=== PATIENT | female | born 1945 | race African-American/Black ===

== ENCOUNTER 2018-04-21 12:55 | Emergency (ER) | payer OTHER ==
[2018-04-21] MEDS ORDERED: NORMAL SALINE 1000 ML 1,000 ML IV ONE (13:28)
[2018-04-21 13:40] LABS: PROTHROMBIN TIME 12.6 SEC (11.4-15.4)
[2018-04-21 13:41] LABS: ABSOLUTE EOSINOPHILS # (AUTO) 0.1 10^3/uL (0.0-0.6); ABSOLUTE LYMPHOCYTES (AUTO) 1.6 10^3/uL (0.5-4.7); ABSOLUTE MONOCYTES (AUTO) 0.5 10^3/uL (0.1-1.4); ABSOLUTE NEUT (AUTO) 3.3 10^3/uL (1.7-8.2); BASOPHILS % (AUTO) 0.5 % (0-2); EOSINOPHILS % (AUTO) 1.3 % (0-6); HEMATOCRIT 41.5 % (36.0-47.0); HEMOGLOBIN 13.8 g/dL (12.0-15.5); LYMPHOCYTES % (AUTO) 29.2 % (13-45); MEAN CORPUSCULAR HEMOGLOBIN 29.6 pg (27.0-33.4); MEAN CORPUSCULAR HGB CONC 33.3 g/dL (32.0-36.0); MEAN CORPUSCULAR VOLUME 89 fl (80-97); MONOCYTES % (AUTO) 8.9 % (3-13); PLATELET COUNT 308 10^3/uL (150-450); RED BLOOD COUNT 4.66 10^6/uL (3.72-5.28); RED CELL DISTRIBUTION WIDTH 14.1 % (11.5-14.0); SEGMENTED NEUTROPHILS % (AUTO) 60.1 % (42-78); TOTAL CELLS COUNTED % (AUTO) 100 %; WHITE BLOOD COUNT 5.4 10^3/uL (4.0-10.5)
[2018-04-21 13:45] LABS: ALANINE AMINOTRANSFERASE 52 U/L (9-52); ALKALINE PHOSPHATASE 55 U/L (38-126); ANION GAP 11 (5-19); ASPARTATE AMINO TRANSFERASE 49 U/L (14-36); BILIRUBIN,DIRECT 0.3 mg/dL (0.0-0.4); BILIRUBIN,TOTAL 0.6 mg/dL (0.2-1.3); BLOOD UREA NITROGEN 15 mg/dL (7-20); CALCIUM 9.8 mg/dL (8.4-10.2); CARBON DIOXIDE 24 mmol/L (22-30); CHLORIDE 106 mmol/L (98-107); GLUCOSE 148 mg/dL (75-110); POTASSIUM 3.8 mmol/L (3.6-5.0); SODIUM 141.3 mmol/L (137-145); TOTAL PROTEIN 7.1 g/dL (6.3-8.2)
[2018-04-21 14:16] LABS: VENOUS BLOOD BASE EXCESS 1.6 mmol/L; VENOUS BLOOD HCO3 26.3 mmol/L (20-32); VENOUS BLOOD PCO2 41.6 mmHg (35-63); VENOUS BLOOD PH 7.42 (7.30-7.42)
--- NOTE | 2018-04-21 14:22 | RADIOLOGY REPORT (SQ) ---
EXAM DESCRIPTION: CHEST SINGLE VIEW COMPLETED DATE/TIME: 04/21/2018 2:03 pm REASON FOR STUDY: tachy COMPARISON: 06/02/2010 EXAM PARAMETERS: NUMBER OF VIEWS: One view. TECHNIQUE: Single frontal radiographic view of the chest acquired. RADIATION DOSE: NA LIMITATIONS: None. FINDINGS: LUNGS AND PLEURA: No opacities, masses or pneumothorax. No pleural effusion. MEDIASTINUM AND HILAR STRUCTURES: No masses. Contour normal. HEART AND VASCULAR STRUCTURES: Heart normal in size for technique. Normal vasculature. BONES: No acute findings. HARDWARE: None in the chest. OTHER: No other significant finding. IMPRESSION: NO ACUTE RADIOGRAPHIC FINDING IN THE CHEST. TECHNICAL DOCUMENTATION: JOB ID: [id number] [employer]- All Rights Reserved Reading location - IP/workstation name: [email or web address]
[2018-04-21 15:01] LABS: APPEARANCE,URINE CLEAR; BILIRUBIN,URINE NEGATIVE (NEGATIVE); COLOR,URINE STRAW; GLUCOSE, URINE NEGATIVE (NEGATIVE); KETONES,URINE NEGATIVE (NEGATIVE); LEUKOCYTE ESTERASE,URINE NEGATIVE (NEGATIVE); NITRITE,URINE NEGATIVE (NEGATIVE); PROTEIN,URINE NEGATIVE (NEGATIVE); URINE SPECIFIC GRAVITY 1.004; UROBILINOGEN,URINE NEGATIVE mg/dL (<2.0)
[2018-04-21 15:16] LABS: URINE AMPHETAMINES SCREEN NEGATIVE; URINE BARBITURATES SCREEN NEGATIVE; URINE BENZODIAZEPINES SCREEN NEGATIVE; URINE COCAINE SCREEN NEGATIVE; URINE MARIJUANA (THC) SCREEN NEGATIVE; URINE METHADONE SCREEN NEGATIVE; URINE PHENCYCLIDINE SCREEN NEGATIVE
[2018-04-21] MEDS ORDERED: VERAPAMIL HCL 120 MG TABLET PO ONE (16:25)
--- NOTE | 2018-04-21 16:33 | ER Document Report ---
ED General - General Chief Complaint: Shortness Of Breath Stated Complaint: SHORTNESS OF BREATH Time Seen by Provider: 04/21/18 13:09 Mode of Arrival: Ambulatory Information source: Patient, Emergency Med Personnel, Outside Facility Records Notes: Patient is a 72-year-old female brought in by EMS who was called by home health to come pick the patient up because she was tachycardic. EMS dropped the patient off at the ER and inform the nursing staff that she was tachycardic. No other history was given to us and patient is borderline dementia. She is functional and lives alone with her cat. Patient has no idea why she is here she does not know that she is tachycardic and she states she is not short of breath. Medications listed on the computer by nursing showed her to take verapamil 120 daily and hydrochlorothiazide 25 daily and simvastatin at night. No other meds were reported. Again patient has no complaints on her own. Although her monitor reading shows her to be tach and out at 130 in stay and at that rate. She denied any chest pain any shortness of breath no nausea no vomiting and no diarrhea. TRAVEL OUTSIDE OF THE [place] IN LAST 30 DAYS: No - HPI Onset: Other - Unknown Onset/Duration: Persistent Quality of pain: No pain Severity: None Pain Level: 0 Associated symptoms: None Exacerbated by: Denies Relieved by: Denies Similar symptoms previously: Yes Recently seen / treated by doctor: No - Related Data Allergies/Adverse Reactions: acetaminophen [From Percocet] Adverse Reaction (Intermediate, Verified 03/16/11 15:37) hallucinates oxycodone HCl [From Percocet] Adverse Reaction (Intermediate, Verified 03/16/11 15:37) hallucinates phenytoin sodium [From Dilantin] Adverse Reaction (Intermediate, Verified 15:36) skin peels phenytoin sodium extended [From Dilantin] Adverse Reaction (Intermediate, Verified 03/16/11 15:36) skin peels Past Medical History - General Information source: Patient, Emergency Med Personnel, Outside Facility Records Cannot obtain history due to: Dementia - Social History Smoking Status: Never Smoker Cigarette use (# per day): No Chew tobacco use (# tins/day): No Smoking Education Provided: No Frequency of alcohol use: None Drug Abuse: None Lives with: Alone Family History: Reviewed & Not Pertinent Patient has suicidal ideation: No Patient has homicidal ideation: No - Past Medical History Cardiac Medical History: Reports: Hx Hypertension Denies: Hx Coronary Artery Disease, Hx Heart Attack Pulmonary Medical History: Denies: Hx Asthma, Hx Bronchitis, Hx COPD, Hx Pneumonia Neurological Medical History: Denies: Hx Cerebrovascular Accident, Hx Seizures Endocrine Medical History: Reports: Hx Diabetes Mellitus Type 2 Renal/ Medical History: Denies: Hx Peritoneal Dialysis Musculoskeletal Medical History: Denies Hx Arthritis Past Surgical History: Denies: Hx Hysterectomy, Hx Pacemaker - Immunizations Hx Diphtheria, Pertussis, Tetanus Vaccination: No Review of Systems - Review of Systems Constitutional: No symptoms reported EENT: No symptoms reported Cardiovascular: No symptoms reported, Other - Tachycardia only complaint Respiratory: No symptoms reported Gastrointestinal: No symptoms reported Genitourinary: No symptoms reported Female Genitourinary: No symptoms reported Musculoskeletal: No symptoms reported Skin: No symptoms reported Hematologic/Lymphatic: No symptoms reported Neurological/Psychological: No symptoms reported -: Yes All other systems reviewed and negative Physical Exam - Vital signs Vitals: Pulse Resp BP Pulse Ox 129 H 15 137/93 H 100 04/21/18 12:56 04/21/18 12:56 04/21/18 12:56 04/21/18 12:56 Interpretation: Tachycardic - Notes Notes: This is a 72-year-old female who appears younger than her stated age. She attempts to be very articulate and appears somewhat anxious. Patient cannot tell me what year it is she knows she lives in [facility] that she has a cat at home that she takes care of and does not know who the president is. She does not know why she is here. She is very pleasant. It is evident that keeping her out of her surroundings makes her more up tight - General General appearance: Anxious In distress: None - Respiratory Respiratory status: No respiratory distress Chest status: Nontender. No: Pain on movement, Pain with cough, Pain with deep breathing Breath sounds: Normal. No: Rales, Rhonchi, Stridor, Wheezing Chest palpation: Normal. No: [place] frothy sputum, Subcutaneous emphysema, Sucking chest wound, Wounds - Cardiovascular Rhythm: Tachycardia Heart sounds: Normal auscultation Murmur: No - Abdominal Inspection: Normal Distension: No distension Bowel sounds: Normal Tenderness: Nontender Organomegaly: No organomegaly - Extremities General upper extremity: Normal inspection, Nontender, Normal ROM, Normal strength General lower extremity: Tender, Edema Calf: Tender, Abrasion, Other - Examination patient's lower extremities shows that the right leg appears slightly bigger than the left but no sign of a infection no sign of DVT negative Homans good cap refill in the nailbeds of the toes. She also has good dorsalis pedal pulse and posterior tibial pulses bilaterally. She also displays good popliteal pulses. No change in skin temperature from 1 like to the other. There is a small abrasion on the right anterior cesar. Ankle: Normal, Nontender Foot: Normal, Nontender - Neurological Cognition: Confused, Short term memory loss Orientation: Disoriented to place, Disoriented to time, Disoriented to events [place] Coma Scale Eye Opening: Spontaneous [place] Coma Scale Verbal: Confused [place] Coma Scale Motor: Obeys Commands [place] Coma Scale Total: 14 Speech: Normal Motor strength normal: LUE, RUE, LLE, RLE Additional motor exam normals: Equal operations support analyst, Dorsiflexion, Plantar flexion. No: Pronator drift, Weakness, Hemiplegia Sensory: Normal, Altered light touch - Skin Skin Temperature: Warm Skin Moisture: Moist Skin Color: Normal, [place] Course - Re-evaluation Re-evalutation: 04/21/18 16:37 Patient's original EKG came back at a heart rate of 128 which appeared junctional as per Dr. Lawton and patient stayed tachycardic on monitor with a rate of about 130. It stayed relatively steady. We discussed the findings of normal labs we decided to give a fluid bolus and at the end of the fluid bolus patient converted to sinus rhythm at 66. There is just again we discussed patient that it was felt that a cardiology interventional call would be appropriate Dr. Bautista was kind enough to take a look at the EKGs listen to my story about the patient and he recommends increasing her verapamil to 120 twice daily. He also has given me his personal cell number he wants me to give either home health or the patient to call and make an appointment tomorrow to see him in his office this week. 04/21/18 16:39 Patient has been asking to be discharged to her home because her cat is by itself. We are attempting to find the home health agency that recommended patient to come into the emergency room so that we can inform them of Dr. Bautista orders. We found this we will discharge patient home. I was able to contact Dr. Bautista he looked at the EKGs and agreed that patient needed to be seen by cardiology but did not feel that was necessary to have her come in to the hospital for it since she was so responsive to the fluid boluses. He is requested that her home health work patient or patient's family contact his office tomorrow which is actually his cell phone at . This way he can set up an appointment for her in the office at the best time. On discharge patient is happy and ready to go home. Is responsible and that was seated to the the prepared foods supervisor number will be contacted in his office to have appointment set up. 04/21/18 17:57 - Vital Signs Vital signs: Temp Pulse Resp BP Pulse Ox 98.2 F 128 H 23 H 146/93 H 100 04/21/18 13:05 04/21/18 13:00 04/21/18 17:01 04/21/18 17:01 04/21/18 17:01 - Laboratory Result Diagrams: 04/21/18 12:30 04/21/18 12:30 Laboratory results interpreted by me: 04/21/18 04/21/18 12:30 12:30 RDW 14.1 H Creatinine 1.46 H Est GFR ( Amer) 43 L Est GFR (Non-Af Amer) 35 L Glucose 148 H AST 49 H Discharge - Discharge Clinical Impression: Tachycardia Condition: Stable Disposition: HOME, SELF-CARE Instructions: Paroxysmal Supraventricular Tachycardia ([facility]) Additional Instructions: Please go home and rest. Wear sorry for the inconvenience this is because you but your heart rate was going too high. It needed to come down and we brought it down by giving you fluids. It is essential that you drink plenty of fluids. I have talked to a prepared foods supervisor Dr. Bautista and phone number for him is [phone] and you or your family are to call this number and this will be the doctor your week to eat speaking to set up an appointment with him for this week. In the meantime he wants you to increase your verapamil to twice a day once in the morning, once in the evening. Should you have any concerns you can hold the medication until you see the prepared foods supervisor. If you have any problems return to ER and let us check you out. Prescriptions: Verapamil HCl [Verapamil ER] 120 mg PO BID #30 tablet.er Referrals: BRAXTON CASTILLO MD [Primary Care Provider] - Follow up as needed CHIDI BAUTISTA MD [ACTIVE STAFF] - Follow up as needed
[2018-04-21 18:04] VITALS: BP 173/109
--- NOTE | 2018-04-21 21:57 | EKG REPORT ---
SEVERITY:- BORDERLINE ECG - SINUS RHYTHM BORDERLINE T ABNORMALITIES, INFERIOR LEADS : Confirmed by: Abby Kang MD 21-Apr-2018 21:55:51
--- NOTE | 2018-04-21 21:57 | EKG REPORT ---
SEVERITY:- ABNORMAL ECG - JUNCTIONAL TACHYCARDIA BORDERLINE T ABNORMALITIES, DIFFUSE LEADS : Confirmed by: Abby Kang MD 21-Apr-2018 21:56:00
== END 2018-04-21 18:23 | disposition home or self-care (01) ==
LOC: ER 12:55
DX: R00.0 Tachycardia, unspecified (principal); R06.02 Shortness of breath; I10 Essential (primary) hypertension; E11.9 Type 2 diabetes mellitus without complications; Z88.6 Allergy status to analgesic agent
CPT/HCPCS: 36415; 71045; 80053; 80307; 81001; 82803; 83605; 84443; 85025; 85610; 87040; 87077; 87086; 87186; 93005; 93010; 96360; 96361; 99285; J3490

== ENCOUNTER → 2018-05-15 | Outpatient (CLI) | payer OTHER ==
[2018-05-15 12:03] LABS: FREE T3 3.28 pg/mL (2.77-5.27); FREE T4 (FREE THYROXINE) 1.29 ng/dL (0.78-2.19)
[2018-05-15 12:16] LABS: THYROID STIMULATING HORMONE 0.58 uIU/mL (0.47-4.68)
== END ==
LOC: OD 10:29
DX: E78.5 Hyperlipidemia, unspecified (principal); Z79.899 Other long term (current) drug therapy
CPT/HCPCS: 36415; 84439; 84443; 84481

== ENCOUNTER → 2019-05-22 | Outpatient (CLI) | payer OTHER ==
[2019-05-22 10:14] LABS: ABSOLUTE EOSINOPHILS # (AUTO) 0.1 10^3/uL (0.0-0.6); ABSOLUTE LYMPHOCYTES (AUTO) 1.2 10^3/uL (0.5-4.7); ABSOLUTE MONOCYTES (AUTO) 0.4 10^3/uL (0.1-1.4); ABSOLUTE NEUT (AUTO) 2.4 10^3/uL (1.7-8.2); EOSINOPHILS % (AUTO) 2.5 % (0-6); HEMATOCRIT 38.4 % (36.0-47.0); HEMOGLOBIN 12.7 g/dL (12.0-15.5); LYMPHOCYTES % (AUTO) 28.9 % (13-45); MEAN CORPUSCULAR HEMOGLOBIN 29.2 pg (27.0-33.4); MEAN CORPUSCULAR HGB CONC 33.1 g/dL (32.0-36.0); MEAN CORPUSCULAR VOLUME 88 fl (80-97); MONOCYTES % (AUTO) 9.6 % (3-13); PLATELET COUNT 262 10^3/uL (150-450); RED BLOOD COUNT 4.36 10^6/uL (3.72-5.28); TOTAL CELLS COUNTED % (AUTO) 100 %; WHITE BLOOD COUNT 4.1 10^3/uL (4.0-10.5)
[2019-05-22 10:40] LABS: ALBUMIN 3.9 g/dL (3.5-5.0); ALKALINE PHOSPHATASE 59 U/L (38-126); ANION GAP 8 (5-19); ASPARTATE AMINO TRANSFERASE 25 U/L (14-36); BILIRUBIN,DIRECT 0.1 mg/dL (0.0-0.4); BILIRUBIN,TOTAL 0.6 mg/dL (0.2-1.3); BLOOD UREA NITROGEN 18 mg/dL (7-20); CALCIUM 9.2 mg/dL (8.4-10.2); CARBON DIOXIDE 30 mmol/L (22-30); CHLORIDE 101 mmol/L (98-107); CHOLESTEROL 203.58 mg/dL (0-200); GLUCOSE 100 mg/dL (75-110); POTASSIUM 3.3 mmol/L (3.6-5.0); TOTAL PROTEIN 7.4 g/dL (6.3-8.2); TRIGLYCERIDES 69 mg/dL (<150)
[2019-05-22 10:51] LABS: DIRECT LDL 98 mg/dL (<100)
--- NOTE | 2019-05-22 11:23 | RADIOLOGY REPORT (SQ) ---
EXAM DESCRIPTION: HIPS BILATERAL COMPLETED DATE/TIME: 05/22/2019 9:33 am REASON FOR STUDY: BILAT HIP PAIN F03.91 UNSPECIFIED DEMENTIA WITH BEHAVIORAL DISTURBANCE I10 ESSEN TIAL (PRIMARY) HYPERTENSION I12.9 HYPERTENSIVE CHRONIC KIDNEY DISEASE W STG 1-4/UNSP CHR COMPARISON: None. NUMBER OF VIEWS: Two views TECHNIQUE: AP pelvis and additional frog-leg view of both hips. LIMITATIONS: None. FINDINGS: MINERALIZATION: Normal. HIPS: No acute fracture or dislocation. No worrisome bone lesions. PELVIS AND SACRUM: No acute fracture or dislocation. No worrisome bone lesions. PUBIS AND ISCHIUM: No acute fracture. LOWER LUMBAR SPINE: No significant findings as visualized. SOFT TISSUES: No findings. OTHER: No other significant finding. IMPRESSION: NEGATIVE STUDY OF THE PELVIS AND HIPS. TECHNICAL DOCUMENTATION: JOB ID: [id number] [employer]- All Rights Reserved Reading location - IP/workstation name: [email or web address]
== END ==
LOC: OD 09:02
PROVIDERS: ATTEND Family Medicine
DX: M25.552 Pain in left hip (principal); M25.551 Pain in right hip; R73.03 Prediabetes; I10 Essential (primary) hypertension; F03.91 Unspecified dementia, unspecified severity, with behavioral disturbance
CPT/HCPCS: 36415; 73522; 80053; 80061; 83036; 84443; 85025